=== PATIENT | male | born 1955 | race Caucasian/White ===

== ENCOUNTER → 2016-05-31 | Outpatient (CLI) | payer MEDICAID ==
--- NOTE | 2016-05-31 10:02 | US ---
Sonography Limited to the Right Upper Quadrant Of The Abdomen CLINICAL HISTORY: 61-year-old male with right upper quadrant pain and pressure, obstipation and const ipation. ICD 10 Diagnostic Codes: R10.11 and R14.0. TECHNIQUE: A curvilinear 5 MHz transducer was used to sonographically evaluate the right upper quadra nt of the abdomen. Color Doppler was used. COMPARISON STUDY: Complete abdominal sonography, dated June 09, 2009. FINDINGS: The pancreatic contour is normal. The abdominal aorta is normal in size, and tapers normall y. The visualized IVC is normal in caliber. The hepatic vein trifurcation is normal. The main portal vein is patent. The liver is normal in size, measuring 13 cm along the right midaxillary line. There is no intra or extrahepatic bile duct dilatation. The common bile duct measures 3.1 mm. The gallblad andria is moderately distended, and there is no evidence of wall thickening, pericholecystic fluid, or s onographic Ham sign. When in the left lateral decubitus position, a single 9.4 mm echogenic stone was seen at the level of the gallbladder neck, demonstrating mobility when the patient was in the sup ine position, and some slight acoustic shadowing. This has an appearance similar to the study from 20 10. The right kidney is normal in size, shape, and contour, with a normal renal cortical thickness, a nd no focal renal mass or hydronephrosis, and measures 10.1 x 5.0 x 5.8 cm. There is no ascites or pl eural effusion. IMPRESSION: Uncomplicated cholelithiasis, with no evidence of cholecystitis or bile duct dilatation.
== END ==
LOC: BRMIMAGING 08:28
PROVIDERS: ATTEND Internal Medicine
DX: K80.20 Calculus of gallbladder without cholecystitis without obstruction (principal)
CPT/HCPCS: 76705-PO

== ENCOUNTER 2016-06-15 09:08 | Day surgery (SDC) | payer MEDICAID ==
[2016-06-15] MEDS ORDERED: GLYCOPYRROLATE 0.2 MG/1 ML VIAL ONE (11:28)
--- NOTE | 2016-06-15 12:34 | GPN ---
[f rep st] PROCEDURE NOTE PREPROCEDURE DIAGNOSES: Periumbilical abdominal pain, bloating, and right upper quadrant pain. POSTPROCEDURE DIAGNOSIS: Hepatic flexure polyp, status post injection and snare removal. PROCEDURES: 1. Colonoscopy with injection. 2. Colonoscopy with snare. MEDICATIONS: Monitored anesthesia care. INDICATIONS: The patient is a 61-year-old gentleman with a history of irritable bowel syndrome and bloating. He has also had worsening periumbilical abdominal pain and right upper quadrant abdominal pain. He also has history of celiac disease. He is here today for colonoscopy for diagnostic purp oses. His last colonoscopy was in 2002. The risks and benefits of the procedure were discussed wit h the patient and consent obtained. Risks include, but not limited to, bleeding, perforation, risks associated with sedation. The patient is ASA class 2. DESCRIPTION OF PROCEDURE: The adult colonoscope was advanced into the cecum. There was a significa nt amount of looping in the patient's colon and it was challenging to get the scope into the cecum, requiring multiple repositions of the patient and pressure. The appendicial orifice and cecum appea red normal. The IC valve was normal. The ascending colon was normal. Along the hepatic flexure, t here was a 12 mm polyp which was flat. The polyp was raised using 1:100,000 dilution of epinephrine and saline with an injection needle. was then used to remove the polyp in piecemeal fash ion. Finally, a hemoclip was placed over the defect. A tattoo was placed at the site to ugo the l ocation of the piecemeal polypectomy. The remaining colon was normal. Retroflexed views in the rec pattie were normal. IMPRESSION: Large hepatic flexure flat polyp, status post removal with injection and clip placement . The polyp was removed in a piecemeal fashion. RECOMMENDATION: 1. Advance diet as tolerated. 2. Discharge the patient to home with escort. 3. Follow up the final pathology results. Results available within 10 days. 4. Repeat colonoscopy in 6 months with monitored anesthesia care at the hospital given the piecemea l polypectomy removal. Thank you for allowing me to participate in the care of your patient. Please do not hesitate to kinsey l with questions. /[id number]/MODL
== END 2016-06-15 12:50 | disposition home health service (06) ==
LOC: FSGY 09:08
PROVIDERS: ATTEND Internal Medicine Gastroenterology
PROC: 0DBF8ZX Excision of Right Large Intestine, Via Natural or Artificial Opening Endoscopic, Diagnostic (ICD-10-PCS; 2016-06-15)
PROC: 3E0H8TZ Introduction of Destructive Agent into Lower GI, Via Natural or Artificial Opening Endoscopic (ICD-10-PCS; principal; 2016-06-15 11:15)
DX: R10.33 Periumbilical pain (principal); D12.6 Benign neoplasm of colon, unspecified; K90.0 Celiac disease; K58.9 Irritable bowel syndrome, unspecified; R14.0 Abdominal distension (gaseous); R10.11 Right upper quadrant pain; E80.4 Gilbert syndrome; Z87.891 Personal history of nicotine dependence

== ENCOUNTER 2016-06-18 05:51 | Day surgery (SDC) | payer MEDICAID ==
[2016-06-18] MEDS ORDERED: SKIN ADHESIVE (DERMABOND) 1 EACH TP ONE (06:11)
[2016-06-18] MEDS ORDERED: BUPIVACAINE/EPI 0.25% 30 ML SDV ONE (06:12)
[2016-06-18] MEDS ORDERED: LIDOCAINE 1% 5 ML SDV ONE (06:31)
[2016-06-18] MEDS ORDERED: LR 1,000 ML IV ONE (06:47)
[2016-06-18] MEDS ORDERED: LIDOCAINE 1% 5 ML SDV ID PRN (06:47)
[2016-06-18] MEDS ORDERED: ONDANSETRON 4 MG/2 ML VIAL ONE (07:00)
[2016-06-18] MEDS ORDERED: LIDOCAINE 2% 5 ML SDV ONE (07:00)
[2016-06-18] MEDS ORDERED: DEXAMETHASONE 4 MG/ML VIAL ONE (07:00)
[2016-06-18] MEDS ORDERED: KETOROLAC 30 MG/1 ML SDV ONE (07:00)
[2016-06-18] MEDS ORDERED: SUGAMMADEX SODIUM 200 MG/2 ML VIAL IVP ONE (07:00)
[2016-06-18] MEDS ORDERED: ceFAZolin 2 GM/DEXTROSE 100 ML IV ONE (07:00)
[2016-06-18] MEDS ORDERED: ROCURONIUM 50 MG/5 ML VIAL ONE (07:00)
[2016-06-18] MEDS ORDERED: PROPOFOL 200 MG/20 ML VIAL ONE (07:01)
[2016-06-18] MEDS ORDERED: fentaNYL 100 MCG/2 ML INJ ONE ×2 (07:01→08:03)
[2016-06-18] MEDS ORDERED: MIDAZOLAM 2 MG/2 ML VIAL ONE (07:16)
[2016-06-18] MEDS ORDERED: GLYCOPYRROLATE 0.2 MG/1 ML VIAL ONE ×2 (07:53)
[2016-06-18] MEDS ORDERED: OXYCODONE/APAP 5/325 TAB ONE (09:57)
--- NOTE | 2016-06-18 11:51 | GOP ---
[f rep st] OPERATIVE REPORT DATE OF OPERATION: 06/18/2016 SURGEON: Chilo Harvey MD ON CAR SUPERVISOR: None. ANESTHESIA: General endotracheal per Dr. Mosqueda. PREOPERATIVE DIAGNOSIS: Biliary colic. POSTOPERATIVE DIAGNOSIS: Acute on chronic cholecystitis. PROCEDURE PERFORMED: Laparoscopic cholecystectomy. FINDINGS: Omental adhesions to the gallbladder infundibulum. The gallbladder wall had a fair amount of fluid within it, consistent with acute on chronic cholecystitis. A critical view was obtained prior to removal of the gallbladder proper. SPECIMENS: Gallbladder. ESTIMATED BLOOD LOSS: 10 cc. DESCRIPTION OF PROCEDURE: The patient was greeted in the preoperative suite. Once again, risks, benefits, and alternatives were discussed. Consent was signed. He was then brought back to the operative suite, placed on the OR table in a supine position. After all anesthesia machines, including SCDs, were on and functioning, a [employer] time-out was performed ending with all in agreement. Antibiotics were given on-call to the operating room. General endotracheal anesthesia was then induced without incident. The patient's abdomen was then widely prepped and draped in a typical sterile fashion. I entered the abdomen using the Veress needle in the left upper quadrant and successfully achieved pneumoperitoneum to 15 mm CO2. I then entered the abdomen using a 10 mm Visiport and a 0-degree laparoscope. Once successfully in the abdomen, I placed 3 additional 5 mm ports, 1 in the subxiphoid, 2 in the right upper quadrant. All under direct visualization. Once this was done, I grabbed the dome of the gallbladder and elevated it over the liver itself. I had to take down some omental adhesions which were done with a combination of electrocautery and gentle dissection. Once this was done, I identified the infundibulum, and retracted it laterally. I dissected out 2 structures, 1 being the cystic artery, the other being the cystic duct and identified only those 2 structures leading to the gallbladder proper. After I identified these, I clipped 2 proximally, 1 distally, and amputated 1st the artery, then the duct in the same fashion. Once this was done, I turned my attention toward taking the gallbladder off the liver bed itself. This was done with electrocautery. Once successfully taken off, it was placed in an EndoCatch bag and removed from the abdomen. I then irrigated the right upper quadrant, noting good hemostasis and no bile leaks from any areas. I then instilled local anesthesia in all port sites under direct visualization and removed them in the same fashion. The fascial defect was reapproximated with a single 0 Vicryl [id number] stitch noting excellent fascial reapproximation. The skin was then closed with running 4-0 Monocryl over which Dermabond was placed. The patient was then extubated in the operative suite and taken to the PACU in satisfactory condition. COUNTS: All counts were reported as correct x2. /[id number]/MODL MTDD
== END 2016-06-18 11:40 | disposition home or self-care (01) ==
LOC: FSGY 05:51
PROVIDERS: ATTEND Surgery
PROC: 0FT44ZZ Resection of Gallbladder, Percutaneous Endoscopic Approach (ICD-10-PCS; principal; 2016-06-18 07:15)
DX: K80.10 Calculus of gallbladder with chronic cholecystitis without obstruction (principal); M10.9 Gout, unspecified
CPT/HCPCS: J0690; J1100; J1885; J2250; J2405; J2704; J3010